=== PATIENT | male | born 1975 ===

== ENCOUNTER 2018-01-13 21:04 | Emergency (ER) | payer MEDICAID ==
[2018-01-13 21:11] VITALS: BMI 48.4
[2018-01-13] MEDS ORDERED: TDAP Vaccine 0.5 mL Syr IM ONE (21:42)
[2018-01-13] MEDS ORDERED: Lidocaine PF 2% (5 ml) Inj (For Cardiac Arrhy) ONE (22:56)
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
[2018-01-14] MEDS ORDERED: Metoprolol Succinate 50 mg XL Tab PO STA (00:26)
[2018-01-14 01:30] VITALS: TEMP 98.6; O2SAT 100
[2018-01-14 01:41] VITALS: BP 168/90; PULSE 89; RESP 18
--- NOTE | 2018-01-14 10:28 | RAD ---
PROCEDURE: Left Hand Radiographs. HISTORY: laceration r/o FB or fracture COMPARISON: None. FINDINGS: BONES: Normal. No fracture. JOINTS: Normal. No osteoarthritic changes. SOFT TISSUES: There is moderate soft tissue swelling overlying the 5th metacarpal. No radiopaque foreign body. OTHER FINDINGS: None. IMPRESSION: No acute fracture or dislocation. Soft tissue swelling overlying the 5th metacarpal. No radiopaque foreign body.
== END 2018-01-14 01:40 | disposition home or self-care (01) ==
LOC: ED 21:04 → MERGE 21:04 → ED 01-14 01:40
DX: S61.211A Laceration without foreign body of left index finger without damage to nail, initial encounter (principal); W26.0XXA Contact with knife, initial encounter; Y93.G9 Activity, other involving cooking and grilling; Y92.000 Kitchen of unspecified non-institutional (private) residence as the place of occurrence of the external cause; Z23 Encounter for immunization